=== PATIENT | female | born 1985 | race African-American/Black ===

== ENCOUNTER 2016-09-02 13:55 | Emergency (ER) | payer MEDICAID ==
[2016-09-02 14:12] VITALS: BMI 21.4
[2016-09-02 14:18] VITALS: TEMP 98.2
[2016-09-02 14:23] LABS: AUTOMATED BASOPHIL 0.9 % (0-2); AUTOMATED EOSINOPHIL 1.7 % (0-5); AUTOMATED LYMPH 50.9 % (17-44); AUTOMATED MONOCYTE 6.2 % (3-10); AUTOMATED NEUTROPHIL 40.3 % (45-76); MPV 8.8 fL (7.4-10.4)
[2016-09-02 14:36] LABS: BLOOD UREA NITROGEN 11 MG/DL (7-17); CALCIUM 9.4 MG/DL (8.4-10.2); CALCULATED OSMOLALITY 274 MOs/Kg (270-290); CHLORIDE 104 mEq/L (98-107); GLUCOSE 100 MG/DL (70-99); SODIUM LEVEL 143 mEq/L (137-146); TOTAL PROTEIN 7.4 G/DL (6.3-8.2)
[2016-09-02 16:59] LABS: AMORPHOUS 2+; LEUKOCYTES/URINE TRACE (NEGATIVE); NITRITE/URINE NEG (NEGATIVE); URINE OCCULT BLOOD NEG (NEG/TRACE); WBC/URINE 0-2 (0-5)
[2016-09-02] MEDS ORDERED: NS 1,000 ML IV ONE ×2 (17:03→17:06)
[2016-09-02] MEDS ORDERED: ONDANSETRON HCL 4 MG/2 ML VIAL IV ONE (17:03)
[2016-09-02] MEDS ORDERED: MORPHINE 4 MG/ML INJECTION IV ONE (17:05)
[2016-09-02] MEDS ORDERED: KETOROLAC TROMETH 30 MG/ML VIAL IV ONE (17:05)
--- NOTE | 2016-09-02 17:36 | EDPRACDOC ---
- General Information Chief Complaint: Abdominal Pain Stated Complaint: LT ABD PAIN Time Seen by Provider: 09/02/16 16:40 Information Source: Patient Mode Of Arrival: Car Home Medications: Home Medications Albuterol Sulfate [Proair Respiclick] 90 mcg IH QID #1 [email or web address] 08/25/16 Azithromycin [Zithromax] 250 mg PO DAILY #6 tablet 08/25/16 Benzonatate [Tessalon] 200 mg PO TID #20 per 08/25/16 Prednisone [Deltasone, Orasone] 20 mg PO BID #12 tab 08/25/16 Tramadol HCl [Ultram] 50 mg PO Q6H #14 tab 08/25/16 Meloxicam [Mobic] 7.5 mg PO BID #20 tab 09/02/16 Oxycodone Immediate Release [Oxycodone Immediate Release (OxyIR)] 5 mg PO Q6H PRN #30 tab 09/02/16 Allergies/Adverse Reactions: Allergies Allergy/AdvReac Type Severity Reaction Status Date / Time hydromorphone [From Dilaudid] Allergy Itching Verified 09/02/16 14:12 - History of Present Illness Onset: HPI: PT PRESENTS TODAY WITH LOWER ABD PAIN AND HEAVY VAGINAL BLEEDING X 5 DAYS. PT STATES THAT SHE HAS ENDOMETRIOSIS AND THIS IS THE CAUSE OF HER PAIN. PT SCHEDULED TO HAVE SURGERY IN SEPTEMBER 2016. FOLLOWS [facility]. NO NEW S /S. PT BALLED UP IN PAIN. Pain Location: Reports: RLQ, LLQ, Suprapubic Pain Context: Reports: Spontaneous Pain Severity: Severe Pain Quality: Reports: Cramping, Sharp, Stabbing Pain Radiation: Reports: No Radiation Last Menstrual Period: NOW Adult Abdominal History: Reports: Similar Pain (dx) Modifying Factors: improves with: Nothing Female Associated Signs & Symptoms: Reports: Nausea Oral Intake: Decreased Urinary Output: Normal ED Past Medical History - History Reviewed Yes Nurses notes reviewed and agree except as marked - Patient Medical History Cardiac History: Reports: Hypertension Respiratory History: Reports: Asthma GI/ History: Reports: Gastroesophageal Reflux Psychological History: Denies: Depression - Social Medical History Smoking Status: Heavy tobacco smoker (5 or more cigarettes/day or daily pipe/ cigar) EDM Review of Systems - Review of Systems ROS Negative Except as Marked: Yes All systems reviewed and were negative except as marked Constitutional: No Symptoms Reported Respiratory: No Symptoms Reported Cardiovascular: No Symptoms Reported Gastrointestinal: Nausea, Pain Genitourinary: Bleeding Neurological: No Symptoms Reported Musculoskeletal: No Symptoms Reported Integumentary: No Symptoms Reported - Physical Exam Constitutional: Alert, Distress Oriented to: Time, Person, Place Last recorded Vital Signs: Last Vital Signs Temp 98.2 F 09/02/16 14:12 Pulse 113 09/02/16 14:12 Resp 20 09/02/16 14:12 BP 135/92 09/02/16 14:12 Pulse Ox 100 09/02/16 14:12 Oxygen Pulse Oxygen Saturation 100 O2 Device Oxygen Flow Rate Fraction of Inspired Oxygen ( FIO2) - HEENT Head: Normal Eye Exam: Normal Neck: Normal, Denies Pain, Midline - Respiratory/Cardiovascular Respiratory: Normal - CTA Cardiovascular: Tachycardia - GI Auscultation: Decreased Palpation: Normal Tenderness: Severe, RLQ, LLQ - Musculoskeletal Back: Normal Extremities: Normal - Integumentary Skin: Normal Lymphatics: Normal - Neurologic Cerebellar: Normal Mood Description: Normal Thought: Coherent Perception: Normal - Results 09/02/16 14:14 09/02/16 14:14 WBC 6.9 xk/uL (3.8-10.8) 09/02/16 14:14 RBC 4.42 xM/uL (4.20-5.40) 09/02/16 14:14 Hgb 11.5 g/dL (12.0-16.0) L 09/02/16 14:14 Hct 36.6 % (36-47) 09/02/16 14:14 MCV 83 fL (81-99) 09/02/16 14:14 MCH 26.0 pg (27-32) L 09/02/16 14:14 MCHC 31.5 g/dl (33-36) L 09/02/16 14:14 RDW 16.1 % (11.5-14.5) H 09/02/16 14:14 Plt Count 154 xk/uL (130-400) 09/02/16 14:14 MPV 8.8 fL (7.4-10.4) 09/02/16 14:14 Neut % (Auto) 40.3 % (45-76) L 09/02/16 14:14 Lymph % (Auto) 50.9 % (17-44) H 09/02/16 14:14 [place] % (Auto) 6.2 % (3-10) 09/02/16 14:14 Eos % (Auto) 1.7 % (0-5) 09/02/16 14:14 Baso % (Auto) 0.9 % (0-2) 09/02/16 14:14 Absolute Neuts (auto) 2.76 xk/uL (1.7-8.2) 09/02/16 14:14 Absolute Lymphs (auto) 3.45 xk/uL (0.65-4.75) 09/02/16 14:14 Sodium 143 mEq/L (137-146) 09/02/16 14:14 Potassium 3.9 mEq/L (3.5-5.1) 09/02/16 14:14 Chloride 104 mEq/L (98-107) 09/02/16 14:14 Carbon Dioxide 31 mMOL/L (22-33) 09/02/16 14:14 Anion Gap 12 mEq/L (8-16) 09/02/16 14:14 BUN 11 MG/DL (7-17) 09/02/16 14:14 Creatinine 0.80 MG/DL (0.52-1.04) 09/02/16 14:14 Estimated GFR (MDRD) > 60 mL/min (>=60) 09/02/16 14:14 Glucose 100 MG/DL (70-99) H 09/02/16 14:14 Calculated Osmolality 274 MOs/Kg (270-290) 09/02/16 14:14 Calcium 9.4 MG/DL (8.4-10.2) 09/02/16 14:14 Total Bilirubin 0.6 MG/DL (0.2-1.3) 09/02/16 14:14 AST 24 IU/L (14-36) 09/02/16 14:14 ALT 39 IU/L (9-52) 09/02/16 14:14 Alkaline Phosphatase 53 IU/L (38-126) 09/02/16 14:14 Total Protein 7.4 G/DL (6.3-8.2) 09/02/16 14:14 Albumin 4.0 G/DL (3.5-5.0) 09/02/16 14:14 Urine Color Yellow 09/02/16 16:38 Urine Clarity Cldy 09/02/16 16:38 Urine pH 7.0 (5.0-8.0) 09/02/16 16:38 Ur Specific [place] 1.015 (1.003-1.035) 09/02/16 16:38 Urine Protein 1+ (NEG/TRACE) H 09/02/16 16:38 Urine Glucose (UA) Neg (NEGATIVE) 09/02/16 16:38 Urine Ketones Neg (NEGATIVE) 09/02/16 16:38 Urine Occult Blood Neg (NEG/TRACE) 09/02/16 16:38 Urine Nitrite Neg (NEGATIVE) 09/02/16 16:38 Urine Bilirubin Neg (NEGATIVE) 09/02/16 16:38 Urine Urobilinogen <2.0 MG/DL (0-1) 09/02/16 16:38 Ur Leukocyte Esterase Trace (NEGATIVE) H 09/02/16 16:38 Urine RBC 2-5 (0-5) 09/02/16 16:38 Urine WBC 0-2 (0-5) 09/02/16 16:38 Ur Epithelial Cells 2+ 09/02/16 16:38 Amorphous Sediment 2+ 09/02/16 16:38 Urine Bacteria Few (NEG/FEW) 09/02/16 16:38 Urine Mucus Mod (NEG/OCC) H 09/02/16 16:38 Urine Test Neg (NEGATIVE) 09/02/16 16:38 Lab Results 09/02/16 09/02/16 09/02/16 16:38 16:38 14:14 WBC 6.9 RBC 4.42 Hgb 11.5 L Hct 36.6 MCV 83 MCH 26.0 L MCHC 31.5 L RDW 16.1 H Plt Count 154 MPV 8.8 Neut % (Auto) 40.3 L Lymph % (Auto) 50.9 H [place] % (Auto) 6.2 Eos % (Auto) 1.7 Baso % (Auto) 0.9 Absolute Neuts (auto) 2.76 Absolute Lymphs (auto) 3.45 Sodium Potassium Chloride Carbon Dioxide Anion Gap BUN Creatinine Estimated GFR (MDRD) Glucose Calculated Osmolality Calcium Total Bilirubin AST ALT Alkaline Phosphatase Total Protein Albumin Urine Color Yellow Urine Clarity Cldy Urine pH 7.0 Ur Specific [place] 1.015 Urine Protein 1+ H Urine Glucose (UA) Neg Urine Ketones Neg Urine Occult Blood Neg Urine Nitrite Neg Urine Bilirubin Neg Urine Urobilinogen <2.0 Ur Leukocyte Esterase Trace H Urine RBC 2-5 Urine WBC 0-2 Ur Epithelial Cells 2+ Amorphous Sediment 2+ Urine Bacteria Few Urine Mucus Mod H Urine Test Neg 09/02/16 14:14 WBC RBC Hgb Hct MCV MCH MCHC RDW Plt Count MPV Neut % (Auto) Lymph % (Auto) [place] % (Auto) Eos % (Auto) Baso % (Auto) Absolute Neuts (auto) Absolute Lymphs (auto) Sodium 143 Potassium 3.9 Chloride 104 Carbon Dioxide 31 Anion Gap 12 BUN 11 Creatinine 0.80 Estimated GFR (MDRD) > 60 Glucose 100 H Calculated Osmolality 274 Calcium 9.4 Total Bilirubin 0.6 AST 24 ALT 39 Alkaline Phosphatase 53 Total Protein 7.4 Albumin 4.0 Urine Color Urine Clarity Urine pH Ur Specific [place] Urine Protein Urine Glucose (UA) Urine Ketones Urine Occult Blood Urine Nitrite Urine Bilirubin Urine Urobilinogen Ur Leukocyte Esterase Urine RBC Urine WBC Ur Epithelial Cells Amorphous Sediment Urine Bacteria Urine Mucus Urine Test - Departure Disposition: Home Condition: Good Final Diagnosis: Abdominal pain Instructions: Acute Abdominal Pain (ED) Education/Counseling Given To: Family Member Education/Counseling Given Regarding: Diagnosis, Treatment, Follow Up Referrals: None,No Provider [Primary Care Provider] - One Week Ann Marie Barrios DO [Staff Physician] - One Week Prescriptions: Meloxicam [Mobic] 7.5 mg PO BID #20 tab Oxycodone Immediate Release [Oxycodone Immediate Release (OxyIR)] 5 mg PO Q6H PRN #30 tab PRN Reason: Pain Additional Instructions: HEATING PADS TO LOWER ABDOMEN FOR ADDITIONAL PAIN RELIEF. CONTINUE FOLLOW UP WITH CONTACT [employer].
[2016-09-02 18:24] VITALS: BP 124/79; PULSE 73
== END 2016-09-02 18:55 | disposition home or self-care (01) ==
LOC: ED 13:55
DX: R10.9 Unspecified abdominal pain (principal)
CPT/HCPCS: 36415; 80053; 81001; 81025; 85025; 96361; 96374; 96375; 99284; J1885; J2270

== ENCOUNTER 2016-09-23 10:02 | Emergency (ER) | payer MEDICAID ==
[2016-09-23 10:15] VITALS: TEMP 98.8; BMI 20.3
--- NOTE | 2016-09-23 11:14 | EDPRACDOC ---
- General Information Chief Complaint: Mouth Lesions Stated Complaint: LIP SWELLING Time Seen by Provider: 09/23/16 11:07 Information Source: Patient Home Medications: Home Medications Oxycodone Immediate Release [Oxycodone Immediate Release (OxyIR)] 5 mg PO Q6H PRN #30 tab 09/02/16 Acyclovir 800 mg PO Q6 #40 tablet 09/23/16 Allergies/Adverse Reactions: Allergies Allergy/AdvReac Type Severity Reaction Status Date / Time hydromorphone [From Dilaudid] Allergy Itching Verified 09/02/16 14:12 - History of Present Illness Onset: THIS AM HPI: FEVER BLISTERS ON MOUTH Pain Quality: Reports: Burning ED Past Medical History - History Reviewed Yes Nurses notes reviewed and agree except as marked - Patient Medical History Cardiac History: Reports: Hypertension Respiratory History: Reports: Asthma GI/ History: Reports: Gastroesophageal Reflux Psychological History: Denies: Depression - Social Medical History Smoking Status: Never smoker EDM Review of Systems - Review of Systems ROS Negative Except as Marked: Yes All systems reviewed and were negative except as marked - Physical Exam Constitutional: Alert (Awake), No apparent distress Oriented to: Time, Person, Place Last recorded Vital Signs: Last Vital Signs Temp 98.8 F 09/23/16 10:12 Pulse 90 09/23/16 10:12 Resp 16 09/23/16 10:12 BP 132/89 09/23/16 10:12 Pulse Ox 100 09/23/16 10:12 Oxygen Pulse Oxygen Saturation 100 O2 Device Room Air Oxygen Flow Rate Fraction of Inspired Oxygen ( FIO2) - HEENT Head: Normal ( normocephalic) Eye Exam: Normal (PERRL, EOMI, Sclera white) Oropharynx: Normal (Pharynx:Moist without exudate,Gums-no swelling) Tympanic Membrane: Normal ENT EAC: Normal TMJ: Normal Nose: No Symptoms Reported (septum midline) Neck: Normal (FROM, trachea at midline) HEENT Comment: FEVER BLISTERS ON UPPER LIP - Respiratory/Cardiovascular Respiratory: Normal - CTA (BBS clear to auscultation without adventitious sounds ) Cardiovascular: Normal (RRR without murmur, gallop or rub) - GI Auscultation: Normal (NABS) Palpation: Normal (Soft,No rebound or guarding, non distended) Tenderness: Non tender Macias's Sign: Negative - Musculoskeletal Back: Normal (Non-Tender) Extremities: Normal (Normal tone, Pulses 2+ No cyanosis or edema, FROM) - Integumentary Skin: Normal, Warm, Dry Lymphatics: Normal (no adenopathy) - Neurologic Memory Impaired: Normal Motor Function: Normal (Normal tone, Pulses 2+ No cyanosis or edema, FROM) Cranial Nerve: Normal (CN II-X11 intact sensation, strength 5/5) Cerebellar: Normal Mood Description: Normal Perception: Normal Decision Time to Discharge: 11:11 - Departure Yes I personally saw and evaluated the patient. Disposition: Home Condition: Good Final Diagnosis: Ulcer of mouth Education/Counseling Given To: Patient Education/Counseling Given Regarding: Diagnosis, Treatment, Prognosis Referrals: None,No Provider [Primary Care Provider] - One Week Min Patterson MD [Staff Physician] - One Week Prescriptions: New Acyclovir 800 mg PO Q6 #40 tablet No Action Oxycodone Immediate Release [Oxycodone Immediate Release (OxyIR)] 5 mg PO Q6H PRN #30 tab PRN Reason: Pain
[2016-09-23 11:48] VITALS: BP 116/76; PULSE 80
== END 2016-09-23 11:45 | disposition home or self-care (01) ==
LOC: ED 10:02
DX: K12.1 Other forms of stomatitis (principal)
CPT/HCPCS: 99282